=== PATIENT | female | born 2000 | race Caucasian/White ===

== ENCOUNTER 2024-05-02 09:00 | Outpatient (REF) | payer OTHER, SELFPAY ==
--- NOTE | ~2024-05-02 | XR_ITS ---
EXAMINATION: XR FOOT LEFT CLINICAL INFORMATION: Pain in unspecified foot M79.673. COMPARISON: None available TECHNIQUE: AP, lateral, and oblique views of the left foot. FINDINGS: Cortical irregularity of the fourth distal phalanx. Normal bone mineralization. The soft tissues are normal. XR/XR foot LT min 3V IMPRESSION: Cortical irregularity of the fourth distal phalanx concerning for minimally displaced fracture. Recommend correlation for point tenderness. Electronically signed by: Marcio Gaviria MD 05/12/2024 10:20 AM ZENA GUERRA
== END 2024-05-02 09:01 | disposition home or self-care (01) ==
LOC: HO.HOSX 09:00
PROVIDERS: Visit Provider Physician Assistant
DX: M79.672 Pain in left foot (principal)
CPT/HCPCS: 73630

== ENCOUNTER 2024-05-02 13:14 | Outpatient (AMB) | payer OTHER, SELFPAY ==
--- NOTE | 2024-05-02 13:32 | A.OFFVIS_ITS ---
Intake Visit Reasons: FC- LT 4th toe fracture DOI 03/12/24 Intake Note: Donovan is a 24 year old female who presents to the office today for a LT 4th toe fracture DOI 03/12/24. Pt is referred by her PCP Lucía Grier. Patient states she missed the first step and fell down the stairs while her foot was caught on the railing. She reports having throbbing pain in her toe and noticing swelling. Patient has tried icing and elevation with mild relief. Allergies No Known Allergies Allergy (Verified 05/02/24 13:40) HPI HPI FC- LT 4th toe fracture DOI 03/12/24: Details: 24-year-old female who presents in the office today for an evaluation of left 4th toe fracture. The patient was referred by the patient's PCP, MADHAVI Little, for further evaluation of a left toe fracture.? While in the office today, the patient reports a left 4th toe fracture, which occurred on 03/12/24. She states her foot was caught on the railings and missed the first step, causing her to fall down the stairs. She describes her pain as throbbing pain in her toe and noticing edema. The patient has tried icing and elevation with mild relief.? 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 No ecchymosis, erythema, or edema. No nail bed disruption. No signs of infection. Extreme out of proportion tenderness to light touch over the distal phalanx of the 4th digit. The patient is able to demonstrate dorsiflexion, plantar flexion, pronation and supination. Negative anterior drawer. Sensation intact. Cap refill is brisk. Pedal pulse intact. Office Procedures AMB Fracture Care Fracture Billing Code: Fracture Billing Code Assessment & Plan Assessment & Plan (1) Fracture of distal phalanx of toe of left foot: Comment: 4th digit Code(s): S92.912A - Unspecified fracture of left toe(s), initial encounter for closed fracture Category: Medical Plan Ms. Coates is a 24-year-old female who presents in the office today for an evaluation of left 4th toe fracture. The patient was referred by the patient's PCP, MADHAVI Little, for further evaluation of left toe fracture. While in the office today, the patient reports left 4th toe fracture, which occurred on 03/12/24. She states her foot was caught on the railings and missed the first step causing her to fall down the stairs. She describes her pain as throbbing pain in her toe and noticing edema. The patient has tried icing and elevation with mild relief. A referral to physical therapy. She was recommended to discontinue using the post-op shoe and crutches at this time and transition to a supportive walking shoe. It is in my opinion that the patient is experiencing pain from being in the post operative shoe for too long. Once she begins to focus on a normal gait pattern I believer her symptoms will resolve. Follow-up will be in 4 weeks for ROM check via telehealth, or sooner if needed. X-rays of the left foot, which were obtained while in the office today and were reviewed by me, Theresa Ventura PA-C, revealed: Redemonstration of left distal phalanx fracture of the 4th digit. Orders: Orders XR foot LT min 3V 05/02/24 M79.673 - Pain in unspecified foot Patient Instructions: Scribed by Liana Perez, medical lab tech instructor, for Theresa Ventura PA-C on 05/02/24 at 2:40 pm EST. Coding Level of Care Code New Pt Level 4 (17176) Complex EM visit Add On G2211 Diagnoses Fracture of distal phalanx of toe of left foot S92.912A CPT Codes Fracture Care - Fracture Billing Code: Fracture Billing Code ([id number])
== END 2024-05-02 14:09 | disposition home or self-care (01) ==
PROVIDERS: PCP Student in an Organized Health Care Education/Training Program; Visit Provider Physician Assistant
DX: S92.912A Unspecified fracture of left toe(s), initial encounter for closed fracture (principal)
CPT/HCPCS: 99203